=== PATIENT | female | born 1990 | race Caucasian/White ===

== ENCOUNTER 2024-09-28 07:59 | Emergency (ER) | payer BC, SELFPAY ==
[2024-09-28 08:04] VITALS: BP 121/84; PULSE 87; RESP 16; TEMP 36.3; O2SAT 99; BMI 25.6
--- NOTE | 2024-09-28 08:09 | ED_ITS ---
HPI - Abdominal Pain General Time Seen by Provider: 08:09 Date Seen: 09/28/24 Chief Complaint: Abdominal Pain Stated Complaint: abdominal pain Time Seen by Provider: 09/28/24 08:09 History of Present Illness HPI narrative: 34 y/o female presents today with generalized abdominal pain this morning on waking. Patient little bit of low abdominal pain for the last couple of days. Pain was more severe on waking this morning, has calmed down little bit. Predominantly in the right pelvis, does go little bit to the left and midline. No upper abdominal pain. No urinary symptoms including hematuria or dysuria. Denies vaginal bleeding or discharge. Nausea, no vomiting. Related Data Home Medications ?Medication ?Instructions ?Recorded ?Confirmed levonorgestrel-ethinyl estrad .ROUTE 09/28/24 sertraline 50 mg tablet 50 mg PO DAILY 09/28/24 09/28/24 Allergies Allergy/AdvReac Type Severity Reaction Status Date / Time No Known Drug Allergies Allergy Verified 09/28/24 08:07 PFS PFS Social History Smoking Status: Never smoker How often do you have a drink containing alcohol: 2-3 times a week How many standard drinks containing alcohol do you have on a typical day: 1 or 2 How often do you have six or more drinks on one occasion: Never AUDIT-C Alcohol total score: 3 Non-prescribed substance use: denies use Exam Narrative: Exam Narrative: General: Well-developed and well-nourished, no acute distress Head: Atraumatic and normocephalic Eyes: Pupils are equal reactive, extraocular motions intact, conjunctiva clear ENT: External nose and ears are normal, posterior pharynx without erythema or exudate Neck: No midline cervical tenderness, full spontaneous range of motion the neck, trachea midline, no adenopathy Heart: Regular rate and rhythm no murmurs or thrills Lungs: Clear to auscultation bilaterally without wheezes or crackles Abdomen: Soft, tenderness just to the right of midline in the pelvis, no tenderness at McBurney's point, nondistended with active bowel sounds Musculoskeletal: No tenderness, deformity, or edema Neurologic: Awake, alert, and oriented x3, no gross focal neurologic deficits, cranial nerves intact as tested Psych: Mood and affect are appropriate Skin: No rashes Const: Vital Signs, click to edit/add: Vital Signs - 24 hr 09/28/24 08:04 Temperature 97.4 F L Pulse Rate [Pulse Oximeter] 87 Respiratory Rate 16 Blood Pressure [Ri ght Upper Arm] 121/84 Pulse Oximetry 99 Oxygen Delivery Me thod Room Air Course Course ED Course: Patient seen and examined, no prior records for review. Patient presents today with right-sided abdominal pain that has been mild for couple of days but more severe today although little bit better than it was earlier. Did have some nausea, no vomiting. No associated urinary symptoms, no diarrhea constipation, no vaginal bleeding. On exam here, patient has some tenderness in the right adnexal area. This is medial to McBurney's point. Suspect gynecologic source including ruptured ovarian cyst, ruptured ectopic possible but less likely as patient denies possibility of today. Mesenteric adenitis and acute appendicitis is not completely excluded. Labs are ordered along with pelvic ultrasound to evaluate for ovarian pathology. This is negative, consider CT scan in did discussed possible need for multiple imaging modalities with patient. Toradol and Zofran ordered for symptom management. Reevaluation(s) Time of Reevaluation #1: 09:21 Reevaluation #1: Labs ordered in panel interpreted by me with normal CBC, normal basic panel, normal urinalysis with no evidence for hematuria or infection, negative pregn lino test Time of Reevaluation #2: 10:50 Reevaluation #2: Discussed ultrasound findings and plan with patient. There is a cyst on the right ovary in physiologic fluid in the pelvis. Symptoms are most consistent with heartburn ovarian cyst although could be from cyst itself, no evidence of torsion, no evidence or hematuria to suggest kidney stone or leukocytosis to suggest acute appendicitis, exam is not consistent with these conditions. Patient is stable for discharge. Vital Signs Vital signs: Initial Vital Signs Temperature 97.4 F L 09/28/24 08:04 Temperature Source Temporal Artery Scan 09/28/24 08:04 Pulse Rate 87 09/28/24 08:04 Respiratory Rate 16 09/28/24 08:04 Blood Pressure 121/84 09/28/24 08:04 Blood Pressure Mean 96 09/28/24 08:04 Blood Pressure Position Sitting 09/28/24 08:04 Pulse Oximetry 99 09/28/24 08:04 Oxygen Delivery Method Room Air 09/28/24 08:04 Vital Signs Temperature 97.4 F L 09/28/24 08:04 Pulse Rate 87 09/28/24 08:04 Respiratory Rate 16 09/28/24 08:04 Blood Pressure 121/84 09/28/24 08:04 Pulse Oximetry 99 09/28/24 08:04 Oxygen Delivery Method Room Air 09/28/24 08:04 Temperature 97.4 F L 09/28/24 08:04 Pulse Rate 87 09/28/24 08:04 Respiratory Rate 16 09/28/24 08:04 Blood Pressure 121/84 09/28/24 08:04 Pulse Oximetry 99 09/28/24 08:04 Oxygen Delivery Method Room Air 09/28/24 08:04 Medications Administered Medications: Discontinued Medications Generic Name Dose Route Start Last Admin Trade Name Freq PRN Reason Stop Dose Admin Ketorolac Tromethamine 15 mg 09/28/24 08:23 09/28/24 08:36 Ketorolac 15 Mg/Ml Inj IVP 09/28/24 08:24 15 mg ONCE ONE Administration Ondansetron HCl 4 mg 09/28/24 08:23 09/28/24 08:35 Ondansetron 2 Mg/Ml Inj IVP 09/28/24 08:24 4 mg ONCE ONE Administration MDM - Abdominal Pain Lab Data Labs: Lab Results 09/28/24 09/28/24 Range/Units 08:40 08:45 WBC 9.18 (4.50-11.00) K/uL RBC 4.22 (4.00-5.20) m/uL Hgb 13.0 (12.0-16.0) gm/dL Hct 39.1 (33.0-51.0) % MCV 93 (80-100) fL MCH 31 (26-34) pg MCHC 33 (32-36) gm/dL RDW Coeff of Rex 13.1 (11.5-15.5) % Plt Count 261 (140-440) K/uL Neut % (Auto) 60.4 (42.0-72.0) % Lymph % (Auto) 29.6 (20-44) % [facility] % (Auto) 7.0 (0.0-11.0) % Eos % (Auto) 2.5 (0.0-7.0) % Baso % (Auto) 0.4 (0.0-3.0) % Neut # (Auto) 5.54 (1.7-7.0) K/uL Lymph # (Auto) 2.72 (0.90-2.90) K/uL [facility] [place] [facility] # (Auto) 0.60 (0.00-0.90) K/UL Eos # (Auto) 0.23 (0.00-0.50) K/uL Baso # (Auto) 0.04 (0.00-0.30) K/uL Abs Immat Gran (auto) 0.01 (0.00-0.30) K/uL Imm/Tot Granulo (auto) 0.1 % Sodium 136 (135-149) mmol/L Potassium 3.9 (3.6-5.1) mmol/L Chloride 106 (96-114) mmol/L Carbon Dioxide 22 (20-32) mmol/L Anion Gap 8 (7-15) mEq/L BUN 7 (5-24) mg/dL Creatinine 0.6 (0.5-1.5) mg/dL Estimated Creat Clear 106.46 Estimated GFR 122 ml/min Glucose 90 (60-115) mg/dL Calcium 9.0 (8.4-10.6) mg/dL Urine Color Yellow (Yellow) Urine Appearance Clear (Clear) Urine pH 6.0 (5.0-8.5) Ur Specific [place] 1.020 (1.000-1.030) Urine Protein Negative (Negative) Urine Glucose (UA) Negative (Negative) Urine Ketones Negative (Negative) Urine Blood Negative (Negative) Urine Nitrite Negative (Negative) Urine Bilirubin Negative (Negative) Urine Urobilinogen 0.2 (0.2-1.0) Ur Leukocyte Esterase Negative (Negative) Urine RBC 0-2 (0-2) Urine WBC 0-2 (0-5) Ur Squamous Epith Cells Few (None-Few) Urine Bacteria None (None) Urine HCG, Qual Negative (Negative) Discharge Plan Discharge Clinical Impression: Rupture of cyst of right ovary Patient Disposition: Home, Self-Care Condition: Stable Instructions: Ovarian Cyst (ED) Additional Instructions: Take Tylenol and ibuprofen as needed for pain Activity Level: Activity as Tolerated Discharge Diet: Regular Prescriptions: No Action sertraline 50 mg tablet 50 mg PO DAILY levonorgestrel-ethinyl estrad [Seasonale ()] .ROUTE Follow Up/Referrals: Provider,Not a Local [Primary Care Provider] - Stand Alone Forms: [employer] Info Instructions
--- NOTE | 2024-09-28 08:23 | CRLHL7_ITS ---
For Patients: As a result of the Century Cures Act, medical imaging exams and procedure reports are released immediately into your electronic medical record. You may view this report before your referring provider. If you have questions, please contact your health care provider. INDICATION: Right lower quadrant pain. TECHNIQUE: Ultrasound pelvis transabdominal and transvaginal. Real-time sonographic images with spectral and color Doppler imaging of the ovaries were obtained. COMPARISON: None FINDINGS: Uterus: 8.5 x 4.3 x 4.6 cm. Endometrium: Within normal limits. The endometrial thickness measures 0.8 cm. Mass: No uterine fibroids identified. Free fluid: Small volume pelvic free fluid, likely physiologic. Right ovary: 4.1 x 3.0 x 2.4 cm. Corpus luteum cyst in the right ovary measuring up to 2.9 cm. Normal arterial and venous blood flow. Left ovary: 2.2 x 1.8 x 0.9 cm. No ovarian or adnexal masses. Normal arterial and venous blood flow. IMPRESSION: Corpus luteum cyst in the right ovary measuring up to 2.9 cm. Dictated by Idris Macdonald MD @ 09/28/2024 10:37:30 AM (Electronically Signed)
[2024-09-28] MEDS: ONDANSETRON 2 MG/ML inj 4 MG IVP (08:35)
[2024-09-28] MEDS: KETOROLAC 15 MG/ML inj IVP (08:36)
[2024-09-28 08:47] LABS: Basophils Absolute Auto 0.04 K/uL (0.00-0.30); Basophils Percent Auto 0.4 % (0.0-3.0); Eosinophils Absolute Auto 0.23 K/uL (0.00-0.50); Eosinophils Percent Auto 2.5 % (0.0-7.0); Hematocrit 39.1 % (33.0-51.0); Immature Granulocytes Abs Auto 0.01 K/uL (0.00-0.30); Immature Granulocytes Pct Auto 0.1 %; Lymphocytes Absolute Auto 2.72 K/uL (0.90-2.90); Lymphocytes Percent Auto 29.6 % (20-44); Mean Corpuscular HGB Conc 33 gm/dL (32-36); Mean Corpuscular Hemoglobin 31 pg (26-34); Mean Corpuscular Volume 93 fL (80-100); Neutrophils Absolute Auto 5.54 K/uL (1.7-7.0); Neutrophils Percent Auto 60.4 % (42.0-72.0); Platelet Count* 261 K/uL (140-440); RDW Coefficient of Variation % 13.1 % (11.5-15.5); Red Blood Count 4.22 m/uL (4.00-5.20); White Blood Count* 9.18 K/uL (4.50-11.00)
[2024-09-28 08:52] LABS: Appearance Urine Clear (Clear); Bilirubin Urine Negative (Negative); Blood Urine Negative (Negative); Color Urine Yellow (Yellow); Glucose Urine Negative (Negative); Ketones Urine Negative (Negative); Leukocyte Esterase Urine Negative (Negative); Nitrite Urine Negative (Negative); Protein Urine Negative (Negative); Urobilinogen Urine 0.2 (0.2-1.0)
[2024-09-28 08:54] LABS: Slide Review Reflex No
[2024-09-28 08:54] LABS: Ur HCG Qualitative* Negative (Negative)
[2024-09-28 08:58] LABS: Chloride* 106 mmol/L (96-114)
[2024-09-28 08:59] LABS: Potassium* 3.9 mmol/L (3.6-5.1); Sodium* 136 mmol/L (135-149)
[2024-09-28 09:01] LABS: Creatinine* 0.6 mg/dL (0.5-1.5); Est. Creatinine Clearance* 106.46; Estimated Glomerular Filt Rate 122 ml/min
[2024-09-28 09:02] LABS: Anion Gap 8 mEq/L (7-15); Blood Urea Nitrogen* 7 mg/dL (5-24); Carbon Dioxide* 22 mmol/L (20-32); Glucose* 90 mg/dL (60-115)
[2024-09-28 09:02] LABS: RBC Urine 0-2 (0-2); Squamous Epithelial Cell Urine Few (None-Few); WBC Urine 0-2 (0-5)
[2024-09-28 10:56] VITALS: BP 124/79; PULSE 76; RESP 16; O2SAT 97
== END 2024-09-28 10:57 | disposition home or self-care (01) ==
PROVIDERS: Emergency Provider Family Medicine
DX: N83.201 Unspecified ovarian cyst, right side (principal); K66.1 Hemoperitoneum
CPT/HCPCS: 36415; 76830; 76856; 80048; 81001; 81025; 85025; 93976; 96374; 96375; 99284; J1885; J2405